=== PATIENT | male | born 1925 | race Caucasian/White ===

== ENCOUNTER → 2016-07-30 | Outpatient (CLI) | payer OTHER ==
[~2016-07-30] MED LIST: COZAAR100 MG PO; DOXYCYCLINE HYC50 MG PO; FISHOIL PO; GABAPENTIN 100100 MG PO; GLUCOPHAGE500 MG PO; NORVASC 5 MG TAB5 MG PO; OMEPRAZOLE PO; PRAVACHOL20 MG PO; PRED FORTE 1% EY5 M1 OP; VENTOLIN17 GM INH; ZOFRAN ODT4 MG PO; ZPAK PO
== END ==
LOC: RAD 11:45
DX: R05 Cough (principal)